=== PATIENT | female | born 1995 | race Caucasian/White ===

== ENCOUNTER 2021-07-30 14:07 | Emergency (ER) | payer OTHER ==
[2021-07-30] MEDS ORDERED: BUFFERED LIDOCAINE 10 ML SYRINGE SUBQ STA (14:25)
--- NOTE | 2021-07-30 14:31 | ED Physician Documentation ---
History of Present Illness - Stated complaint Stated Complaint: PAIN IN L FEET - Chief complaint Chief Complaint: Ext Problem - Additonal information Additional information: 26-year-old female presents the emergency department for evaluation of pain in the right distal foot after accidentally stepping on something in her livingroom carpet about 3 days ago. She believes it is either hay or a dog hair. Since then she has had progressive swelling redness and tenderness. unable to bear weight on foot. Reports tetanus is up-to-date within the last 5 years. may be Review of Systems Constitutional: denies: Fever, Chills Eyes: reports: Reviewed and negative Ears: reports: Reviewed and negative Nose: reports: Reviewed and negative Cardiac: reports: Reviewed and negative Respiratory: reports: Reviewed and negative GI: reports: Reviewed and negative Skin: reports: Lesions PD PAST MEDICAL HISTORY - Present Medications Home Medications: Ambulatory Orders Medication Instructions Recorded Confirmed Sulfamethox/Trimeth 800/160 1 each PO BID #14 tablet 07/30/21 [Bactrim Ds 800/160] - Allergies Allergies/Adverse Reactions: Allergies Allergy/AdvReac Type Severity Reaction Status Date / Time No Known Drug Allergies Allergy Verified 07/30/21 14:19 PD ED PE EXPANDED - General General: Alert, No acute distress - Extremities Extremities: Right foot (Sole of the foot at the base of the small toe has an area of induration erythema as well as tenderness suggestive of foreign body under the skin. No drainage or purulence.) Results - Vitals Vitals: Vital Signs - 24 hr 07/30/21 14:16 Temperature 36.7 C Heart Rate 90 Respiratory 16 Rate Blood Pressure 131/79 H O2 Saturation 100 Oxygen O2 Source Room air - Labs Labs: Laboratory Tests 07/30/21 15:35 Urine HCG, Qual NEGATIVE - Rads (name of study) right foot Radiology: EMP read contemporaneously (Foreign body likely a needle in the distal right lateral foot near the proximal PIP of the small toe) Procedures - FB removal FB location: Subcutaneous FB removal preparation: Local anesthesia-specify (1% lidocaine) Removal method: Foreceps, Incision FB removal aftercare: No complications, Patient tolerated well, Removed successfully (An approximate the 2 cm long broken needle was successfully removed from the right lateral foot) PD MEDICAL DECISION MAKING - ED course Complexity details: reviewed results, re-evaluated patient, d/w patient ED course: 26-year-old female presents the emergency department for evaluation of pain in the right foot after stepping on something sharp in her carpeted living room. X-ray reveals a broken needle. This was likely a sewing needle. We were able to successfully remove it at the bedside however fair amount of purulent fluid did drain from around the track site. She will be started on Bactrim. Routine wound care and emergent return precautions discussed. Departure - Departure Disposition: Home, Self Care Clinical Impression: Foreign body (FB) in soft tissue, Cellulitis of foot, right Condition: Stable Record reviewed to determine appropriate education?: Yes Instructions: ED Cellulitis Ch Prescriptions: Sulfamethox/Trimeth 800/160 [Bactrim Ds 800/160] 1 each PO BID #14 tablet Comments: You are seen today for a foreign body in your right foot. We were able to successfully remove a needle from the foot. You do have some surrounding infection. Please fill the prescription for the Bactrim and begin taking twice daily for the next week. I do recommend warm compress to the area or soaking your foot in warm Epsom salt twice daily. If despite the antibiotics you still continue to have pain redness swelling then please return to the ER for a second evaluation. Your prescription has been electronically sent to the [facility] in [place].
[2021-07-30 15:49] LABS: HCG UR QUAL NEGATIVE
--- NOTE | 2021-07-30 15:52 | XRAY Report ---
PROCEDURE: Foot 2 View RT INDICATIONS: ? FB TECHNIQUE: 2 views of the foot were acquired. COMPARISON: None. FINDINGS: BONES: No acute, displaced fracture or dislocation. SOFT TISSUES: A linear metallic body projects over the plantar aspect of the fifth proximal phalanx. Soft tissue swelling of the fifth digit. IMPRESSION: 1.No acute osseous abnormality. 2.Linear foreign body as detailed above. Reviewed by: Valdez Verduzco MD on 07/30/2021 3:51 PM PST Approved by: Valdez Verduzco MD on 07/30/2021 3:51 PM PST Station ID: [id number]
[2021-07-30 16:04] VITALS: BP 134/78
== END 2021-07-30 16:18 | disposition home or self-care (01) ==
LOC: ED 14:07
DX: M79.5 Residual foreign body in soft tissue (principal); L03.115 Cellulitis of right lower limb
CPT/HCPCS: 28190; 81025